=== PATIENT | male | born 1955 | race Caucasian/White ===

== ENCOUNTER 2016-08-01 08:00 | Inpatient (IN) | payer OTHER ==
--- NOTE | 2016-08-02 15:29 | HP ---
[facility] - Chief Complaint Chief Complaint: left knee pain - Past Medical History Allergies/Adverse Reactions: Allergies Allergy/AdvReac Type Severity Reaction Status Date / Time No Known Allergies Allergy Verified 08/02/16 13:12 - Current Medications Current Medications: Home Medications Medication Instructions Recorded Acetaminophen [Tylenol] 325 mg PO PRN PRN 08/02/16 Lisinopril 10 mg PO DAILY 08/02/16 Metoprolol Succinate [Toprol Xl] 50 mg PO DAILY 08/02/16 Satellite Physical Exam - Physical Examination General Appearance: Well Nourished, Well Developed, Alert & Oriented x3 ENT: Clear Lung: Normal air movement Heart: Regular rate & rhythm Extremities: Other (left knee- + swelling, + ttp, decr rom, nvi xrays show severe tricompartmental djd) Neurological: Intact, Alert, Oriented Satellite Impression/Plan - Impression/Plan Impression: left knee djd Operative Procedure: left lashonda tkr Date to be Performed: 08/04/16
[2016-08-04] MEDS ORDERED: CEFAZOLIN 2 GM in DEXTROSE 5%-WATER - 50 ML IVPB ONE (06:36)
[2016-08-04] MEDS ORDERED: TRANEXAMIC ACID 1000 MG/10 ML VIAL IVPUSH ONE (06:36)
[2016-08-04] MEDS: CELECOXIB 200 MG CAPSULE PO ONE ×2 (06:45→12:28)
[2016-08-04] MEDS: GABAPENTIN 300 MG CAPSULE (FP) PO ONE ×2 (06:45→12:28)
[2016-08-04] MEDS ORDERED: DEXAMETHASONE SOD PHOSPHATE/PF 10 MG/ML SDV ONE (06:45)
[2016-08-04] MEDS ORDERED: ROPIVACAINE HCL 0.5% 30ML VIAL ONE (06:45)
[2016-08-04] MEDS: oxyCODONE HCL 10 MG SUSTAINED ACTING TABLET PO ONE ×2 (06:45→12:28)
[2016-08-04] MEDS ORDERED: MIDAZOLAM HCL 2 MG/2 ML SINGLE DOSE VIAL ONE ×2 (06:45→07:55)
[2016-08-04] MEDS ORDERED: SODIUM CHLORIDE 0.9% P/F 10 ML VIAL IJ ONE (06:46)
[2016-08-04] MEDS ORDERED: BUPIVACAINE HCL/PF 0.5% (5MG/ML) 10 ML VIAL ONE (07:11)
[2016-08-04] MEDS ORDERED: ceFAZolin SODIUM 1 GM VIAL ONE (07:13)
[2016-08-04] MEDS ORDERED: VANCOMYCIN 1,000 MG VIAL (RESTRICTED TO ID ONLY) ONE (07:14)
[2016-08-04 07:17] VITALS: BMI 38.0
[2016-08-04] MEDS ORDERED: ONDANSETRON 4 MG/2 ML VIAL IVPB PRN (10:27)
[2016-08-04] MEDS ORDERED: LACTATED RINGERS SOLUTION 1,000 ML IV SCH (10:30)
[2016-08-04] MEDS ORDERED: ACETAMINOPHEN 325 MG TABLET (FP) PO ONE (11:50)
[2016-08-04] MEDS ORDERED: ACETAMINOPHEN 325 MG TABLET (FP) ONE (11:55)
[2016-08-04] MEDS ORDERED: MAG HYDROX/AL HYDROX/SIMETH 30 ML UNIT-DOSE CUP PO PRN (12:13)
[2016-08-04] MEDS ORDERED: oxyCODONE HCL 5 MG TABLET PO PRN (12:43)
[2016-08-04] MEDS ORDERED: ROPIVACAINE 0.2% 400ML 400 ML ML NR ONE (12:43)
[2016-08-04] MEDS: ACETAMINOPHEN 325 MG TABLET (FP) PO SCH ×3 (12:54→23:23)
[2016-08-04] MEDS: oxyCODONE HCL 5 MG TABLET PO PRN (14:36)
--- NOTE | 2016-08-04 15:44 | SURG ---
Surgery Underwriting Clerks Supervisor Note Underwriting Clerks Supervisor: Juan Luis Mandel PA-C Date of Service: 08/04/16 Diagnosis: Left knee djd Procedure: Left knee JERILYN TKR I was present for the entirety of the operative procedure. For further detail, please refer to operative report. Visit type - Case Type Case Type: Scheduled Admission - New patient This patient is new to me today: Yes Date on this admission: 08/04/16
--- NOTE | 2016-08-04 16:41 | OP ---
DATE OF OPERATION: 08/04/2016 PROCEDURE: Left total knee replacement with robotic-assisted navigation (MAKOplasty) PREOPERATIVE DIAGNOSIS: Degenerative joint disease, left knee POSTOPERATIVE DIAGNOSIS: Degenerative joint disease, left knee SURGICAL ATTENDING: Lico Cannon MD MANPOWER DEVELOPMENT SPECIALIST MANAGER: BRYAN Frank ANESTHESIA: Spinal and regional. CLOSURE: Triathlon knee system with a No. 6 femur, No. 6 tibia, 11mm polyethylene, No. 32 patella, No. 1 Vicryl to fascia, 0 and 2-0 subcutaneous, 3-0 Monocryl subcuticular for skin with skin glue. 4-0 undyed Vicryl for pin sites. ESTIMATED BLOOD LOSS: Negligible. TOURNIQUET TIME: Approximately 80 minutes. COMPLICATIONS: None. CONDITION: To recovery room in stable condition. PROCEDURE: Patient was taken to the operating room on August 04, 2016. Regional and spinal anesthesia were administered by the anesthesiologist. IV antibiotics and TXA were administered prophylactically prior to the case. A well-padded pneumatic tourniquet was placed on the left proximal thigh. The left lower extremity was prepped and draped in the usual sterile fashion. An approximately 12-cm midline incision centered over the patella was incised. Hemostasis was achieved with Bovie cautery. Sharp dissection was carried down to the level of the extensor mechanism the procedure. The medial parapatellar arthrotomy was then performed. The patella was inverted and the knee was flexed up to 90 degrees. Subperiosteal dissection was performed on the anteromedial proximal tibia until the knee was able to be brought forward. This was facilitated by taking the ACL, the PCL, and the medial and lateral menisci. A checkpoint was malleted into the medial femoral condyle and into the anteromedial proximal tibia. Through two small stab incisions in the mid femur and two in the mid tibia, two bicortical pins were drilled, achieving excellent height. Two of these pins were attached to the navigation arrays. The knee was then registered with the navigation device by rotating the hip to ascertain the center of rotation of the hip with points on both the medial and lateral malleoli and multiple points on both the femur and on the tibia. Excellent registration was confirmed by "popping the bubbles". At this time, the osteophytes on the edges of the proximal tibia both medially and laterally, as well as on the medial lateral femoral condyles underneath the collateral ligaments were debrided. The knee was stressed in extension and in flexion to confirm good gaps. The virtual positions of the components were then optimized in order to have a balanced knee, both in extension and in 90 degrees of flexion. The sizes of the components were also optimized to get good coverage over both the tibia and the femur and to produce equal gaps in extension and flexion with the appropriate amount of external rotation of the femur, the appropriate amount of flexion of the femoral component and the appropriate slope on the tibial component. At this time, the robot was brought into the field and registered. The robot was used to cut the proximal tibia and to make all the cuts on the distal femur. The bone was then removed. A spacer block in extension and flexion was used to confirm equal balancing of the component in both extension and 90 degrees of flexion. The box for the posterior cruciate sacrificing component was then performed and a trial component on the femur and tibia was applied. The femoral component was clipped into place with the appropriate external rotation. This was confirmed by the navigation device, ensuring the appropriate position of the tibial component on the proximal tibia. The patella was calipered for thickness and osteotomized at the appropriate level. A lollipop was used to drill the three lugholes in the patella and then a trial component was applied. The knee was taken through a range of motion and found to have excellent tracking of the patella from full extension to full flexion, with good stability, varus/valgus throughout range of motion. The trial components were then removed. Before removing the tibial tray, the keyhole was made. The knee was then thoroughly irrigated with antibiotic irrigation. The real components were then cemented in, using modern generation cement techniques with antibiotic cement and pressurization. After the cement was hardened, the knee was thoroughly inspected to remove all excess cement. The real polyethylene component was then clipped into place. Again, range of motion, stability and tracking were found to be excellent throughout. The knee was then pulse antibiotic irrigated and dried. Vancomycin powder was placed into the knee. The checkpoints were removed. The medial parapatellar arthrotomy was then closed using number 1 Vicryl interrupted suture. The knee was again taken through range of motion and found to have no undue tension on the repair and good tracking throughout. The subcutaneous was closed with 0 and 2-0 Vicryl and 3-0 Monocryl subcuticular for skin with skin glue. The pins were removed in the femur and the tibia and pulse antibiotic irrigated and closed with 4-0 undyed Vicryl. Sterile Aquacel dressing followed by a Vergara dressing was applied. The tourniquet was then deflated. One more dose of TXA was administered at the end of the case. The patient was awakened from anesthesia and transferred to the recovery room in stable condition. X-rays revealed good position of the components. There were no complications. Estimated blood loss was negligible. Total tourniquet time was approximately 80 minutes. Sivan [id number]
[2016-08-04] MEDS: CEFAZOLIN 2 GM/D5W 50 ML IVPB SCH (18:33)
[2016-08-04] MEDS ORDERED: GABAPENTIN 300 MG CAPSULE (FP) PO SCH (22:00)
[2016-08-04] MEDS ORDERED: diphenhydrAMINE HCL 25 MG CAPSULE (FP) PO PRN (22:14)
[2016-08-04] MEDS: oxyCODONE HCL 10 MG SUSTAINED ACTING TABLET PO SCH (22:28)
[2016-08-04] MEDS: CELECOXIB 200 MG CAPSULE PO SCH (22:28)
[2016-08-04] MEDS: ASCORBIC ACID 500 MG TABLET (FP) PO SCH (22:28)
[2016-08-04] MEDS: SENNOSIDES/DOCUSATE COMBO (SENNA PLUS) TABLET (UD) PO SCH (22:28)
[2016-08-04] MEDS: GABAPENTIN 300 MG CAPSULE (FP) PO SCH (22:28)
[2016-08-05] MEDS: CEFAZOLIN 2 GM/D5W 50 ML IVPB SCH (01:19)
[2016-08-05] MEDS: ACETAMINOPHEN 325 MG TABLET (FP) PO SCH ×4 (05:53→23:35)
[2016-08-05] MEDS: ASPIRIN 325 MG TABLET PO SCH (08:14)
[2016-08-05 09:05] LABS: MCHC 35.5 g/dl (32.0-35.9); MEAN CELL VOLUME 95.6 fl (80-96); MEAN PLT VOLUME 11.1 fl (7.5-11.1); PLATELET COUNT 103 K/MM3 (134-434); RDW 12.7 % (11.9-15.9); WHITE BLOOD COUNT 6.6 K/mm3 (4.0-10.0)
[2016-08-05 09:17] LABS: CALCIUM 8.4 mg/dl (8.4-10.2); CREATININE 0.6 mg/dl (0.6-1.3)
[2016-08-05] MEDS: LISINOPRIL 10 MG TABLET (FP) PO SCH (10:06)
[2016-08-05] MEDS: CELECOXIB 200 MG CAPSULE PO SCH ×2 (10:06→21:24)
[2016-08-05] MEDS: SENNOSIDES/DOCUSATE COMBO (SENNA PLUS) TABLET (UD) PO SCH ×2 (10:06→21:24)
[2016-08-05] MEDS: PANTOPRAZOLE 40 MG TABLET (FP) PO SCH (10:07)
[2016-08-05] MEDS: ASCORBIC ACID 500 MG TABLET (FP) PO SCH ×2 (10:07→21:24)
[2016-08-05] MEDS: GABAPENTIN 300 MG CAPSULE (FP) PO SCH ×2 (10:07→21:24)
[2016-08-05] MEDS: MULTIVITAMINS (DAILY MVI) TABLET (FP) PO SCH (10:07)
[2016-08-05] MEDS: oxyCODONE HCL 10 MG SUSTAINED ACTING TABLET PO SCH ×2 (10:08→21:24)
[2016-08-05] MEDS: METOPROLOL SUCCINATE 50 MG TAB.SR.24H (FP) PO SCH (10:09)
--- NOTE | 2016-08-05 17:11 | PN ---
Progress Note (short form) - Note Progress Note: Pt seen and examined. He is on POD #1 s/p left TKR. He states he is doing well, min pain, he did well with P.T. AVSS H/H good LLE is NVI Good ROM throughout Dressing was reinforced because of a little bloody discharge, now dry Overall pt doing very well. He likely will be DC'd home tomorrow. F/U with Dr Cannon in 1 week
[2016-08-05] MEDS ORDERED: ZOLPIDEM TARTRATE 5 MG TABLET PO PRN (18:30)
--- NOTE | 2016-08-05 18:33 | PN ---
Progress Note (short form) - Note Progress Note: S: Pt. without complaints O: VAS 0/10 A/P: POD#1 s/p left tkr 1. Continuous adductor infusion d/cd in prep for early discharge tomorrow. Cath removed. Tip intact 2. continue post-op pain meds as ordered
[2016-08-06] MEDS: ACETAMINOPHEN 325 MG TABLET (FP) PO SCH ×2 (06:12→12:05)
[2016-08-06 06:46] VITALS: BP 144/94; PULSE 73; TEMP 98.9
[2016-08-06] MEDS: ASPIRIN 325 MG TABLET PO SCH (07:48)
[2016-08-06] MEDS: oxyCODONE HCL 5 MG TABLET PO PRN ×2 (07:48→15:03)
[2016-08-06] MEDS: ASCORBIC ACID 500 MG TABLET (FP) PO SCH (09:38)
[2016-08-06] MEDS: PANTOPRAZOLE 40 MG TABLET (FP) PO SCH (09:38)
[2016-08-06] MEDS: CELECOXIB 200 MG CAPSULE PO SCH (09:38)
[2016-08-06] MEDS: oxyCODONE HCL 10 MG SUSTAINED ACTING TABLET PO SCH (09:38)
[2016-08-06] MEDS: LISINOPRIL 10 MG TABLET (FP) PO SCH (09:38)
[2016-08-06] MEDS: MULTIVITAMINS (DAILY MVI) TABLET (FP) PO SCH (09:38)
[2016-08-06] MEDS: METOPROLOL SUCCINATE 50 MG TAB.SR.24H (FP) PO SCH (09:38)
[2016-08-06] MEDS: GABAPENTIN 300 MG CAPSULE (FP) PO SCH (09:38)
[2016-08-06] MEDS: SENNOSIDES/DOCUSATE COMBO (SENNA PLUS) TABLET (UD) PO SCH (09:38)
[2016-08-06 09:51] LABS: MCH 33.3 pg (25.7-33.7); MCHC 34.4 g/dl (32.0-35.9); MEAN CELL VOLUME 97.1 fl (80-96); MEAN PLT VOLUME 10.9 fl (7.5-11.1); PLATELET COUNT 94 K/MM3 (134-434); RDW 13.4 % (11.9-15.9); WHITE BLOOD COUNT 6.7 K/mm3 (4.0-10.0)
--- NOTE | 2016-08-08 14:28 | PATH ---
Surgical Pathology Report Patient Name: TERRENCE ANGELA Med. Rec. #: [id number] /Age/Gender: 1955 (Age: 61) / M Account: [id number] Location: [facility] MED-SURG Taken: 08/04/2016 Received: 08/04/2016 Reported: 08/08/2016 Physicians: Lico Cannon M.D. Specimen(s) Received BONE LEFT KNEE Clinical History Left knee osteoarthritis Final Diagnosis BONE AND SOFT TISSUE, LEFT KNEE, REPLACEMENT: DEGENERATIVE JOINT DISEASE. Electronically Signed [place] M.D. Gross Description Received in formalin, labeled "bone left knee" are multiple fragments of rael-yellow bone with preserved aspects of tibial plateau and attached real-yellow soft tissue. There is a 2 cm in largest dimension area of eburnation on the articular surface. The remaining articular surface is granular. The underlying trabecular bone is real-yellow and heterogenous. Load Builder section submitted one cassette following decalcification. AF/08/04/2016 final/08/04/2016
== END 2016-08-06 15:08 | disposition home health service (06) | DRG 470 ==
LOC: FM/S 08-04 06:11
PROVIDERS: ADMIT Orthopaedic Surgery; ATTEND Orthopaedic Surgery
PROC: 8E0Y0CZ Robotic Assisted Procedure of Lower Extremity, Open Approach (ICD-10-PCS; 2016-08-04)
PROC: 0SRD0J9 Replacement of Left Knee Joint with Synthetic Substitute, Cemented, Open Approach (ICD-10-PCS; principal; 2016-08-04 08:47)
DX: M17.12 Unilateral primary osteoarthritis, left knee (principal); Z86.73 Personal history of transient ischemic attack (TIA), and cerebral infarction without residual deficits; I11.9 Hypertensive heart disease without heart failure; E66.9 Obesity, unspecified; Z68.38 Body mass index [BMI] 38.0-38.9, adult; G47.30 Sleep apnea, unspecified
CPT/HCPCS: 36415; 73560-TC-LT; 80048; 85027; 88305-TC; 88311-TC; 94010; 94760; 97116-GP; 97162-PG